=== PATIENT | male | born 1970 | race Caucasian/White ===

== ENCOUNTER 2023-09-25 17:22 | Emergency (ER) | payer SELFPAY ==
[~2023-09-25] VITALS: Ht 167.6 cm; Wt 72.6 kg
[~2023-09-25 17:22] MED LIST: TYLENOL
[2023-09-25 18:11] VITALS: BP 132/55; PULSE 86; RESP 18; TEMP 98; O2SAT 98
[2023-09-25 19:05] VITALS: BP 117/67; PULSE 66; RESP 15; TEMP 98
[2023-09-25 19:32] LABS: APPEARANCE,URINE CLEAR (CLEAR); BILIRUBIN,URINE NEGATIVE (NEGATIVE); BLOOD, URINE NEGATIVE (NEGATIVE); COLOR,URINE YELLOW (YELLOW); LEUKOCYTE ESTERASE ,URINE NEGATIVE (NEGATIVE); NITRITE, URINE NEGATIVE (NEGATIVE); PROTEIN,URINE NEGATIVE (NEGATIVE); UGLUCOSE NEGATIVE (NEGATIVE); UROBILINOGEN,URINE 0.2 EU/dL (0.2 - 1)
[2023-09-25 19:43] VITALS: O2SAT 98
== END 2023-09-25 22:39 | disposition home or self-care (01) ==
LOC: MED 17:22
DX: S39.011A Strain of muscle, fascia and tendon of abdomen, initial encounter (principal); K62.89 Other specified diseases of anus and rectum; N50.811 Right testicular pain; R30.0 Dysuria; I10 Essential (primary) hypertension; X58.XXXA Exposure to other specified factors, initial encounter; Y92.89 Other specified places as the place of occurrence of the external cause; Y93.89 Activity, other specified; Y99.8 Other external cause status
CPT/HCPCS: 76870; 81003; 87491; 99284; Q0092